=== PATIENT | female | born 2000 | race African-American/Black ===

== ENCOUNTER 2019-06-26 07:51 | Emergency (ER) | payer OTHER ==
[~2019-06-26] VITALS: Ht 149.9 cm; Wt 66.2 kg
[2019-06-26 08:05] LABS: URINE BILIRUBIN NEGATIVE (Negative); URINE BLOOD 1+ (Negative); URINE CLARITY SL CLOUDY; URINE COLOR YELLOW; URINE GLUCOSE-RANDOM* NEGATIVE (Negative); URINE KETONES NEGATIVE (Negative); URINE NITRITE-REFLEX NEGATIVE (Negative); URINE PROTEIN (DIPSTICK) TRACE (Negative); URINE SPECIFIC GRAVITY 1.015 (1.005-1.035)
[2019-06-26 08:08] LABS: URINE LEUKOCYTES-REFLEX 1+ (Negative)
[2019-06-26 08:56] LABS: SQUAMOUS 4-10 Moderate /LPF (0-3)
[2019-06-26 08:57] LABS: CASTS None Seen /LPF (None Seen); CRYSTALS None Seen /LPF (None Seen); URINE RBC 3-10 Few /HPF (0-2); URINE WBC-REFLEX >25 Many /HPF (0-5)
[2019-06-26 08:58] LABS: BACTERIA-REFLEX >30 Many /HPF (None Seen)
[2019-06-26] MEDS ORDERED: PYRIDIUM200 MG PO (10:31)
[2019-06-26] MEDS ORDERED: KEFLEX500 M1 PO (10:31)
[2019-06-26 10:53] VITALS: BP 99/71
== END 2019-06-26 10:56 | disposition home or self-care (01) ==
LOC: ER 07:51
PROVIDERS: Emergency Medicine
DX: N39.0 Urinary tract infection, site not specified (principal); Z11.3 Encounter for screening for infections with a predominantly sexual mode of transmission

== ENCOUNTER 2019-07-24 18:13 | Emergency (ER) | payer OTHER ==
[~2019-07-24] VITALS: Ht 149.9 cm; Wt 64.9 kg
[~2019-07-24 18:13] MED LIST: KEFLEX500 M1 PO; PYRIDIUM200 MG PO
[2019-07-24 18:27] VITALS: BP 110/69
[2019-07-24 18:39] LABS: URINE BILIRUBIN NEGATIVE (Negative); URINE BLOOD 1+ (Negative); URINE CLARITY CLEAR; URINE COLOR YELLOW; URINE GLUCOSE-RANDOM* NEGATIVE (Negative); URINE KETONES NEGATIVE (Negative); URINE NITRITE-REFLEX NEGATIVE (Negative); URINE PROTEIN (DIPSTICK) NEGATIVE (Negative); URINE UROBILINOGEN 0.2 E.U./dl (0.2-1.0)
[2019-07-24 18:41] LABS: URINE LEUKOCYTES-REFLEX 2+ (Negative)
[2019-07-24 18:54] LABS: BACTERIA-REFLEX None Seen /HPF (None Seen); CASTS None Seen /LPF (None Seen); CRYSTALS None Seen /LPF (None Seen); SQUAMOUS 0-3 Few /LPF (0-3); URINE RBC 3-10 Few /HPF (0-2)
== END 2019-07-24 22:30 | disposition home or self-care (01) ==
LOC: ER 18:13
PROVIDERS: Emergency Medicine
DX: N39.0 Urinary tract infection, site not specified (principal); A59.9 Trichomoniasis, unspecified; Z20.2 Contact with and (suspected) exposure to infections with a predominantly sexual mode of transmission

== ENCOUNTER 2019-07-30 01:07 | Emergency (ER) | payer OTHER ==
[~2019-07-30] VITALS: Ht 149.9 cm; Wt 64.0 kg
[2019-07-30 02:00] LABS: ABSOLUTE NEUTROPHILS 2.7 thou/uL (1.4-8.2); BASOPHILS 0.3 % (0.0-2.0); EOSINOPHILS 1.9 % (0.0-3.0); HEMATOCRIT 36.5 % (37.0-47.0); LYMPHOCYTES 37.4 % (24.0-44.0); MCH 28.9 pg (26.0-34.0); MCV 87.6 fL (80.0-100.0); MONOCYTES 7.2 % (1.0-8.0); PLATELET COUNT 272 thou/uL (150-400); POLYS 53.2 % (36.0-66.0); RBC 4.17 mil/uL (4.20-5.00); RDW 13.3 % (10.5-14.5); WBC 5.2 thou/uL (4.0-11.0)
[2019-07-30 02:25] LABS: ANION GAP 5 mmol/L (7-16); BUN 6 mg/dL (7-18); CALCIUM 8.9 mg/dL (8.5-10.1); CHLORIDE 98 mmol/L (98-107); CO2 28 mmol/L (21-32); CREATININE 0.7 mg/dL (0.6-1.0); GLUCOSE 95 mg/dL (74-106); SODIUM 131 mmol/L (136-145)
[2019-07-30 02:26] LABS: POTASSIUM 2.9 mmol/L (3.5-5.1)
[2019-07-30 02:34] LABS: TROPONIN-I <0.06 ng/mL (<0.06)
[2019-07-30 02:51] LABS: AMP/METHAMP Negative (Negative); BARBITURATES Negative (Negative); BENZODIAZEPINES Negative (Negative); COCAINE Negative (Negative); METHADONE Negative (Negative); OPIATES Negative (Negative); PCP Negative (Negative)
[2019-07-30] MEDS ORDERED: MAG-OXIDE200 MG PO (03:50)
[2019-07-30] MEDS ORDERED: KLOR-CON 1010 MEQ PO (03:50)
[2019-07-30] MEDS ORDERED: ZOFRAN ODT4 MG PO (03:51)
[2019-07-30 04:14] VITALS: BP 104/47
--- NOTE | 2019-07-30 10:23 | EKG ---
[place] [address] 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
== END 2019-07-30 04:15 | disposition home or self-care (01) ==
LOC: ER 01:07
PROVIDERS: Emergency Medicine
DX: R07.89 Other chest pain (principal); E87.6 Hypokalemia; E83.42 Hypomagnesemia; R11.2 Nausea with vomiting, unspecified; Z88.8 Allergy status to other drugs, medicaments and biological substances; Z79.899 Other long term (current) drug therapy

== ENCOUNTER 2019-12-27 03:00 | Emergency (ER) | payer OTHER ==
[~2019-12-27] VITALS: Ht 149.9 cm; Wt 63.5 kg
[~2019-12-27 03:00] MED LIST changes: +KLOR-CON 1010 MEQ PO; +MAG-OXIDE200 MG PO; +ZOFRAN ODT4 MG PO
[2019-12-27 03:55] LABS: URINE BILIRUBIN NEGATIVE (Negative); URINE BLOOD NEGATIVE (Negative); URINE CLARITY CLEAR; URINE COLOR YELLOW; URINE GLUCOSE-RANDOM* NEGATIVE (Negative); URINE KETONES NEGATIVE (Negative); URINE NITRITE-REFLEX NEGATIVE (Negative); URINE PROTEIN (DIPSTICK) NEGATIVE (Negative); URINE SPECIFIC GRAVITY 1.015 (1.005-1.035); URINE UROBILINOGEN 0.2 E.U./dl (0.2-1.0)
[2019-12-27] MEDS ORDERED: PRILOSEC OTC20 MG PO (03:55)
[2019-12-27] MEDS ORDERED: LEVSIN0.125 MG PO (03:55)
[2019-12-27 03:56] LABS: URINE LEUKOCYTES-REFLEX 1+ (Negative)
[2019-12-27 04:11] LABS: BACTERIA-REFLEX 1-9 Few /HPF (None Seen); CASTS None Seen /LPF (None Seen); CRYSTALS None Seen /LPF (None Seen); MUCUS 0-3 Light strn/LPF (None Seen); SQUAMOUS 4-10 Moderate /LPF (0-3); URINE RBC 0-2 Rare /HPF (0-2); URINE WBC-REFLEX 6-15 Few /HPF (0-5)
[2019-12-27 04:11] LABS: HEMATOCRIT 36.6 % (37.0-47.0); HEMOGLOBIN 11.9 gm/dL (12.0-15.0); MCH 28.7 pg (26.0-34.0); MCHC 32.5 g/dL (28.0-37.0); MCV 88.5 fL (80.0-100.0); RBC 4.14 mil/uL (4.20-5.00); RDW 14.4 % (10.5-14.5)
[2019-12-27 04:21] LABS: AMP/METHAMP Negative (Negative); BARBITURATES Negative (Negative); BENZODIAZEPINES Negative (Negative); COCAINE Negative (Negative); METHADONE Negative (Negative); OPIATES Negative (Negative); PCP Negative (Negative)
[2019-12-27] MEDS ORDERED: ONDANSETRON ODT4 MG PO (04:40)
[2019-12-27 04:57] LABS: ALBUMIN 3.4 g/dL (3.4-5.0); CALCIUM 8.8 mg/dL (8.5-10.1); CREATININE 0.8 mg/dL (0.6-1.0); MAGNESIUM 1.4 mg/dL (1.8-2.4); POTASSIUM 3.6 mmol/L (3.5-5.1); TOTAL BILIRUBIN 0.2 mg/dL (<0.1-1.0); TOTAL PROTEIN 7.4 g/dL (6.4-8.2)
[2019-12-27] MEDS ORDERED: MAG-OXIDE400 MG PO (05:01)
[2019-12-27 05:04] VITALS: BP 125/63
--- NOTE | 2019-12-27 09:30 | EKG ---
[facility] [place] [address] ELECTROCARDIOGRAM REPORT Name: PIERRE MCCOY Room #: DEP [facility]#: [id number] Admission: 12/27/19 Attend Phys: Discharge: 12/27/19 Date of : [birth year] Report #: [id number] THIS REPORT FOR: cc: NO FAMILY PHYSICIAN or PCP NO FAMILY PHYSICIAN or PCP Jarad Ovalle MD [facility] ~ THIS REPORT FOR: //name// [facility] ED Test Date: 2019-12-27 Test Time: 03:40:55 Pat Name: PIERRE MCCOY Department: Room: Gender: F Bridge Manager: NO : 2000 Requested By: Home Foster Order Number: [id number] MD: Jarad Ovalle Measurements Intervals [place] Rate: 58 P: 1 [place]: 150 QRS: 55 QRSD: 89 T: 23 QT: 419 QTc: 412 Interpretive Statements Sinus bradycardia Otherwise normal tracing Compared to ECG 07/30/2019 01:42:07 Sinus arrhythmia no longer present Electronically Signed On 12-27-2019 9:29:34 CDT by Jarad Ovalle [email or web address] <ELECTRONICALLY SIGNED> By: Jarad Ovalle MD, [facility] 12/27/19 0929 9 9 Jarad Ovalle MD, [facility] /EPI
== END 2019-12-27 05:15 | disposition home or self-care (01) ==
LOC: ER 03:00
PROVIDERS: Emergency Medicine
DX: E83.42 Hypomagnesemia (principal); J02.9 Acute pharyngitis, unspecified; R07.89 Other chest pain; R10.30 Lower abdominal pain, unspecified; Z88.8 Allergy status to other drugs, medicaments and biological substances

== ENCOUNTER 2020-05-08 02:53 | Emergency (ER) | payer OTHER ==
[~2020-05-08] VITALS: Ht 149.9 cm; Wt 62.1 kg
[~2020-05-08 02:53] MED LIST changes: +LEVSIN0.125 MG PO; +MAG-OXIDE400 MG PO; +ONDANSETRON ODT4 MG PO; +PRILOSEC OTC20 MG PO
[2020-05-08 02:55] VITALS: BP 130/88
== END 2020-05-08 03:46 | disposition home or self-care (01) ==
LOC: ER 02:53
DX: R06.02 Shortness of breath (principal); R42 Dizziness and giddiness; Z20.828 Contact with and (suspected) exposure to other viral communicable diseases; Z79.899 Other long term (current) drug therapy; Z88.8 Allergy status to other drugs, medicaments and biological substances

== ENCOUNTER 2021-01-23 05:12 | Emergency (ER) | payer OTHER ==
[~2021-01-23] VITALS: Ht 152.4 cm; Wt 70.3 kg
[2021-01-23 05:32] LABS: ABSOLUTE NEUTROPHILS 3.1 thou/uL (1.4-8.2); BASOPHILS 0.9 % (0.0-2.0); HEMATOCRIT 39.3 % (37.0-47.0); HEMOGLOBIN 13.3 gm/dL (12.0-15.0); LYMPHOCYTES 39.4 % (24.0-44.0); MCH 30.5 pg (26.0-34.0); MCHC 33.8 g/dL (28.0-37.0); MCV 90.1 fL (80.0-100.0); MONOCYTES 9.8 % (1.0-8.0); PLATELET COUNT 289 thou/uL (150-400); POLYS 46.9 % (36.0-66.0); RBC 4.36 mil/uL (4.20-5.00); RDW 14.4 % (10.5-14.5); WBC 6.6 thou/uL (4.0-11.0)
[2021-01-23 05:47] LABS: ANION GAP 14 mmol/L (7-16); BUN 8 mg/dL (7-18); CHLORIDE 104 mmol/L (98-107); CO2 24 mmol/L (21-32); CREATININE 0.8 mg/dL (0.6-1.0); GLUCOSE 89 mg/dL (74-106); POTASSIUM 3.3 mmol/L (3.5-5.1); SODIUM 142 mmol/L (136-145)
[2021-01-23 05:57] LABS: ALBUMIN 3.7 g/dL (3.4-5.0); SGOT 39 U/L (15-37); SGPT 27 U/L (14-59); TOTAL BILIRUBIN 0.3 mg/dL (0.2-1.0); TOTAL PROTEIN 8.1 g/dL (6.4-8.2); TROPONIN-I <0.06 ng/mL (<0.06)
[2021-01-23 06:14] LABS: URINE BILIRUBIN NEGATIVE (Negative); URINE BLOOD 3+ (Negative); URINE CLARITY CLOUDY; URINE COLOR YELLOW; URINE GLUCOSE-RANDOM* NEGATIVE (Negative); URINE KETONES NEGATIVE (Negative); URINE LEUKOCYTES-REFLEX NEGATIVE (Negative); URINE NITRITE-REFLEX NEGATIVE (Negative); URINE PROTEIN (DIPSTICK) 1+ (Negative); URINE SPECIFIC GRAVITY >= 1.030 (1.005-1.035)
[2021-01-23 06:26] LABS: BACTERIA-REFLEX 1-9 Few /HPF (None Seen); CASTS None Seen /LPF (None Seen); MUCUS >6 Heavy strn/LPF (None Seen); SQUAMOUS >10 Many /LPF (0-3); URINE RBC >20 Many /HPF (NONE SEEN); URINE WBC-REFLEX 0-5 Rare /HPF (0-5)
[2021-01-23 06:27] LABS: CRYSTALS None Seen /LPF (None Seen)
[2021-01-23 06:33] VITALS: BP 112/72
--- NOTE | 2021-01-23 07:06 | EKG ---
[place] [address] [facility] [place] [address] ELECTROCARDIOGRAM REPORT Name: PIERRE MCCOY [id number] Admission: 01/23/21 Attend Phys: Discharge: 01/23/21 Date of : [birth year] Report #: [id number] 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
== END 2021-01-23 06:40 | disposition home or self-care (01) ==
LOC: ER 05:12
PROVIDERS: Emergency Medicine
DX: R07.89 Other chest pain (principal); R11.2 Nausea with vomiting, unspecified; F12.90 Cannabis use, unspecified, uncomplicated; Z88.8 Allergy status to other drugs, medicaments and biological substances; Z79.82 Long term (current) use of aspirin

== ENCOUNTER 2021-10-14 06:41 | Emergency (ER) | payer OTHER ==
[~2021-10-14] VITALS: Ht 149.9 cm; Wt 71.2 kg
--- NOTE | ~2021-10-14 | EMS ---
[address] [address] EMS Patient Care Report Name: PIERRE MCCOY Room #: DEP ER[facility] Blanco#: [id number] Admission: 10/14/21 Attend Phys: Discharge: 10/14/21 Date of : [birth year] Report #: [id number] THIS REPORT FOR: //name// Report Transmitted: 10/15/2021 07:03 EMS Care Summary [place], [place]/[facility] Incident [phone] @ 10/14/2021 06:10 Incident Location [address] [place] [address] Patient PIERRE MCCOY Female, 21 Years 2000 Patient Address [address] [place] [address] Patient History Cardiac Condition - Other, Patient Allergies No known allergies, Patient Medications Protonix, Bentyl, Chief Complaint chest pain on breathing Disposition Transported No Lights/[place] Dispatch Reason Chest Pain (Non-Traumatic) Transported To [facility] Narrative ARRIVED TO FIND PT SITTING ON THE COUCH. PT REPORTS [facility] OF CHEST PAIN AND VOMITING THAT LOOKS LIKE STOMACH BILE. ALS ASSESSMENT VITALS [address] [address] EMS Patient Care Report Name: PIERRE MCCOY Room #: DEP Thad.#: [id number] Admission: 10/14/21 Attend Phys: Discharge: 10/14/21 Date of : [birth year] Report #: [id number] OBTAINED. PT ASSISTED WALK TO AMBULANCE, CLIMBS ABOARD, SECURED WITH STRAPS X2. ENROUTE, PT CONDITION UNCHANGED. ARRIVED. PT TAKEN INSIDE ON COT TO ER 7. PT MOVED TO BED RAILS RAISED X2. REPORT GIVEN TO NURSE, PT CARE TRANSFERRED. Initial Vitals @06:26P: 63,SpO2: 98,MS Suspected: false @06:37P: 74,R: 20,Pain: 6/10,GCS: 15,CO: 3,SpO2: 98, @06:21P: 92,R: 20,BP: 142/86,Pain: 6/10,GCS: 15,Glucose: 97,SpO2: 99,Revised Trauma: 12, Assessments @06:17MENTAL:Person Oriented,Event Oriented,Place Oriented,Time Oriented,SKIN:HEENT:Head/Face: No Abnormalities,Eyes: No Abnormalities,Neck/Airway: No Abnormalities,LUNG SOUNDS:General: Nausea,General: Vomiting,Left Upper: No Abnormalities,Right Upper: No Abnormalities,Left Lower: No Abnormalities,Right Lower: No Abnormalities,ABDOMEN:General: Nausea,General: Vomiting,Left Upper: No Abnormalities,Right Upper: No Abnormalities,Left Lower: No Abnormalities,Right Lower: No Abnormalities,PELVIS//GI:No Abnormalities,EXTREMITIES:Left Arm: No Abnormalities,Right Arm: No Abnormalities,Left Leg: No Abnormalities,Right Leg: No Abnormalities,PULSE:Radial: 2+ Normal,NEURO:No Abnormalities, Impression Chest Pain, Other (Non-Cardiac) Procedures @06:17 ALS Assessment Response: UnchangedSucceeded @06:26 12-Lead ECG Response: UnchangedSucceeded Timeline 06:09,Call Received 06:09,Dispatch Notified 06:10,Dispatched 06:12,En Route 06:16,On Scene 06:17,At Patient 06:17,ALS Assessment,Response: UnchangedSucceeded, 06:21,BP: 142/86 M,PULSE: 92,RR: 20 R,SPO2: 99 Ox,ETCO2: ,B,PAIN: 6,GCS: 15, 06:26,Depart Scene 06:26,12-Lead ECG,Response: UnchangedSucceeded, 06:26,BP: / M,PULSE: 63,RR: R,SPO2: 98 Ox,ETCO2: ,BG: ,PAIN: ,GCS: , [address] [place] [address] EMS Patient Care Report Name: PIERRE MCCOY Room #: DEP [facility].#: [id number] Admission: 10/14/21 Attend Phys: Discharge: 10/14/21 Date of : [birth year] Report #: [id number] 06:37,BP: / M,PULSE: 74,RR: 20 R,SPO2: 98 Ox,ETCO2: ,BG: ,PAIN: 6,GCS: 15, 06:37,At Destination 06:50,Call Closed Disclaimer v1.1 Copyright 2021 [employer] This EMS Care Summary contains data elements from the applicable legal record (which may be displayed differently). It is designed to provide pertinent information for the following purposes: continuity of care, clinical quality, and state data reporting. The complete legal record is available to ED staff and administrators of the receiving hospital in [facility]'s Patient Tracker. All data is provided "as is."
[2021-10-14 07:54] LABS: CALCIUM 9.4 mg/dL (8.5-10.1); CREATININE 0.8 mg/dL (0.6-1.0); POTASSIUM 3.5 mmol/L (3.5-5.1)
[2021-10-14 08:08] LABS: ALBUMIN 3.7 g/dL (3.4-5.0); TOTAL BILIRUBIN 0.2 mg/dL (0.2-1.0); TOTAL PROTEIN 7.2 g/dL (6.4-8.2)
[2021-10-14] MEDS ORDERED: ZOFRAN ODT4 MG PO (08:40)
[2021-10-14 08:44] LABS: ABSOLUTE NEUTROPHILS 5.1 thou/uL (1.4-8.2); BASOPHILS 0.3 % (0.0-2.0); EOSINOPHILS 1.1 % (0.0-3.0); HEMATOCRIT 39.9 % (37.0-47.0); HEMOGLOBIN 13.2 gm/dL (12.0-15.0); MCH 29.8 pg (26.0-34.0); MCHC 33.1 g/dL (28.0-37.0); MCV 89.9 fL (80.0-100.0); MONOCYTES 6.7 % (1.0-8.0); PLATELET COUNT 313 thou/uL (150-400); POLYS 65.9 % (36.0-66.0); RBC 4.44 mil/uL (4.20-5.00); RDW 13.7 % (10.5-14.5); WBC 7.7 thou/uL (4.0-11.0)
[2021-10-14] MEDS ORDERED: REGLAN 10 MG TA10 MG PO (09:03)
[2021-10-14 09:05] VITALS: BP 116/74
--- NOTE | 2021-10-14 10:03 | EKG ---
[place] [address] [employer] [place] [address] ELECTROCARDIOGRAM REPORT Name: PIERRE MCCOY Room #: [facility] [id number] Admission: 10/14/21 Attend Phys: Discharge: 10/14/21 Date of : [birth year] Report #: [id number] [facility] ED Test Date: 2021-10-14 Test Time: 06:57:39 Pat Name: PIERRE MCCOY Department: Room: Gender: F Small Offset Printer: YUNIER : 2000 Requested By: Isaac Rodriguez Order Number: [id number] MD: Jarad Ovalle Measurements Intervals [place] Rate: 71 P: 4 [place]: 164 QRS: 67 QRSD: 85 T: 29 QT: 392 QTc: 426 Interpretive Statements Sinus rhythm No significant abnormality Compared to ECG 01/23/2021 05:30:09 No significant changes Electronically Signed On 10-14-2021 7:54:37 SHAMPOO ASSISTANT by Jarad Ovalle [email or web address] <ELECTRONICALLY SIGNED> By: Jarad Ovalle MD, [facility] 10/14/21 0754 0657 06 Jarad Ovalle MD, FACC /EPI
== END 2021-10-14 08:41 | disposition home or self-care (01) ==
LOC: ER 06:41
PROVIDERS: Emergency Medicine
DX: K31.84 Gastroparesis (principal); Z98.890 Other specified postprocedural states; Z88.8 Allergy status to other drugs, medicaments and biological substances